=== PATIENT | female | born 1990 | race Caucasian/White ===

== ENCOUNTER 2024-10-22 17:35 | Emergency (ER) | payer MEDICAID ==
[~2024-10-22] VITALS: Ht 162.6 cm; Wt 68.0 kg
[2024-10-22 17:46] VITALS: O2SAT 100
[2024-10-22 18:24] LABS: ADD RBC MORPHOLOGY YES; BASOPHILS % 0.7 % (0.0-2.0); DIFFERENTIAL COMMENT 1; HEMATOCRIT. 27.4 % (36.0-48.0); HEMOGLOBIN. 7.9 g/dL (12.0-16.0); MEAN CORPUSCULAR HEMOGLOBIN 17.1 pg (28.0-32.0); MEAN CORPUSCULAR HGB CONC 28.8 g/dL (31.0-37.0); MEAN CORPUSCULAR VOLUME 59.4 fL (81.0-99.0); MEAN PLATELET VOLUME 8.7 fl (7.4-10.4); MONOCYTES % 6.8 % (2.0-8.0); NEUTROPHILS % 64.5 % (40.0-76.0); PLATELET 264 x1000/uL (130-400); RED BLOOD CELL COUNT 4.62 mill/uL (4.2-5.4); RED CELL DISTRIBUTION WIDTH 20.2 % (11.6-14.6); WHITE BLOOD COUNT 7.8 x1000/uL (4.5-11.0)
[2024-10-22 18:32] LABS: CHLORIDE 105 mEq/L (98-107); POTASSIUM 3.3 mEq/L (3.5-5.1); SODIUM 137 mEq/L (136-145)
[2024-10-22 18:33] LABS: CARBON DIOXIDE 26 mEq/L (21-32)
[2024-10-22 18:34] LABS: CALCIUM 8.7 mg/dL (8.7-10.4)
[2024-10-22 18:39] LABS: CREATININE 0.7 mg/dL (0.6-1.0); GLUCOSE 104 mg/dL (70-105); UREA NITROGEN BLOOD 7 mg/dL (9-23)
[2024-10-22 18:47] LABS: ANISOCYTOSIS 2+; HYPOCHROMASIA 3+; MICROCYTOSIS 3+; PLATELET ESTIMATE NORMAL
[2024-10-22 19:30] VITALS: BP 188/92; PULSE 73; RESP 12; TEMP 36.7; O2SAT 100
[2024-10-22] MEDS ORDERED: DOCU-286 MT (19:50)
== END 2024-10-22 19:59 | disposition home or self-care (01) ==
LOC: ER 17:35
DX: D50.9 Iron deficiency anemia, unspecified (principal); I10 Essential (primary) hypertension
CPT/HCPCS: 80048; 85025; 86850; 86900; 86901; 36415; 99283; Z7610